=== PATIENT | female | born 1945 | race Caucasian/White ===

== ENCOUNTER → 2017-03-19 | Outpatient (CLI) | payer MEDICARE ==
[~2017-03-19] MED LIST: AMIT50TA3 PO; BALANCED SALT SOLN OPHT IRRIG 15 ML BTL ONE; BRIMONIDINE TARTRATE 0.15% OPHT SOLN 5 ML BTL ONE; CHOL5000 PO; CITA10TA4 PO; GABA300C5 PO; LANTUS2P SQ; LEVO50TA4 PO; LOSA50TA PO; METF1000 PO; NOVOINJ3 SQ; OMEP20TA PO; PILOCARPINE HCL 2% OPHT SOLN 15 ML BTL ONE; PLAV75TA29 PO; PRED1SUS6 LEFT EYE; PROPARACAINE HCL 0.5% OPHT SOLN 15 ML BTL ONE
== END ==
LOC: PHSDC 08:23
PROVIDERS: ATTEND Ophthalmology
DX: H40.20X0 Unspecified primary angle-closure glaucoma, stage unspecified (principal)

== ENCOUNTER 2017-07-02 16:25 | Inpatient (IN) | payer MEDICARE, MEDICAID ==
[~2017-07-02] VITALS: Ht 160 cm; Wt 60.6 kg
[~2017-07-02 16:25] MED LIST changes: -BALANCED SALT SOLN OPHT IRRIG 15 ML BTL ONE; -BRIMONIDINE TARTRATE 0.15% OPHT SOLN 5 ML BTL ONE; +COMB0.2S EACH EYE; +LEVO100T5 PO; -LEVO50TA4 PO; +MECL-62 PO; -NOVOINJ3 SQ; +NOVOLOGP2 SQ; -OMEP20TA PO; +OMEP20TA93 PO; -PILOCARPINE HCL 2% OPHT SOLN 15 ML BTL ONE; -PRED1SUS6 LEFT EYE; +PRED3.5D LEFT EYE; -PROPARACAINE HCL 0.5% OPHT SOLN 15 ML BTL ONE
[2017-07-02 16:44] VITALS: BP 181/84; PULSE 92; RESP 16; TEMP 98.1; O2SAT 99
--- NOTE | 2017-07-02 19:09 | RADRPT ---
EXAM DATE/TIME: 07/02/2017 18:30 [facility] COMPARISON: HIP RIGHT (AP & LAT), October 25, 2013, 19:47. INDICATIONS : Right hip pain post fall 1 week ago MEDICAL HISTORY : Right hip fracture SURGICAL HISTORY : ORIF right hip ENCOUNTER: Initial ACUITY: 1 week PAIN SCORE: 5/10 LOCATION: Right entire hip FINDINGS: No definite fractures, or dislocations are identified. No definite lytic or sclerotic lesion is seen . Slight osteopenia is seen. There are post surgical changes and evidence for old healed right proxi mal femoral fracture. CONCLUSION: Slight osteopenia. Kassie Lugo MD on July 02, 2017 at 19:07 Board Certified Radiologist. This report was verified electronically.
--- NOTE | 2017-07-02 19:13 | RADRPT ---
EXAM DATE/TIME: 07/02/2017 18:39 [facility] COMPARISON: CT BRAIN W/O CONTRAST, December 22, 2013, 16:05. INDICATIONS : Trauma, fall. RADIATION DOSE: 60.50 CTDIvol (mGy) MEDICAL HISTORY : Hypertension. Diabetes mellitus type 2. SURGICAL HISTORY : None. ENCOUNTER: Initial ACUITY: 1 week PAIN SCALE: 3/10 LOCATION: Right cranial TECHNIQUE: Multiple contiguous axial images were obtained of the head. Using automated exposure control and adj ustment of the mA and/or kV according to patient size, radiation dose was kept as low as reasonably a chievable to obtain optimal diagnostic quality images. DICOM format image data is available electro nically for review and comparison. FINDINGS: There is no evidence for intracranial hemorrhage, mass effect, mass lesions, or edema. The visualize d bony structures appear intact. Slight degree of brain atrophy is seen. Slight periventricular whit e matter changes are seen nonspecific mostly consistent with chronic small vessel ischemic changes. Approximate subcentimeter area of diminished attenuation is present in the left latanya anteriorly not present previously may represent an area of acute lacunar infarction of uncertain age could be chron ic. CONCLUSION: Slight atrophic and small vessel ischemic changes without any evidence for acute hemorrhage or mass effect and lacunar type infarction involving the left anterior latanya not present p revdayne. Kassie Lugo MD on July 02, 2017 at 19:09 Board Certified Radiologist. This report was verified electronically.
--- NOTE | 2017-07-02 19:23 | PD ---
HPI Chief Complaint: Fall Time Seen by Provider: 18:06 Travel History International Travel<30 days: No Contact w/Intl Traveler<30days: No Traveled to known affect area: No History of Present Illness HPI This is a 72-year-old female who presents for right hip pain. She states about a week ago, she lost her balance and fell onto her right side. She had her head but did not have loss of consciousness. This was not a syncopal episode. She states that she's had mild pain in her right buttock/posterior hip. She is able to ambulate with a cane. The pain is worse with lifting her leg and movement. No focal weakness, numbness, tingling, saddle paresthesias, bowel or bladder dysfunction. Symptoms are mild in severity. Onset with trauma. Sore in nature. Alleviated by taking Aleve. She states that she has had surgery on this hip before and wanted to make sure that there were no new fractures. She denies any pain in the right knee or ankle. No low back pain. No neck pain. She has been otherwise well recently without fever, chills, cough, congestion. PFSH Past Medical History Hx Anticoagulant Therapy: Yes Arthritis: No Asthma: No Autoimmune Disease: No Anxiety: Yes Depression: Yes Heart Rhythm Problems: No Cancer: No Cardiovascular Problems: Yes (htn on meds) High Cholesterol: Yes Chest Pain: No Congestive Heart Failure: No COPD: No Cerebrovascular Accident: No Diabetes: Yes (type 2) Patient Takes Glucophage: No Diminished Hearing: No Endocrine: Yes Fibromyalgia: Yes Gastrointestinal Disorders: Yes GERD: Yes Genitourinary: No Hepatitis: No Hiatal Hernia: No Hypertension: Yes Immune Disorder: No Implanted Vascular Access Dvce: No Insomnia: Yes Kidney Stones: No Musculoskeletal: Yes (FIBROMYALGIA) Neurologic: Yes Psychiatric: Yes Reproductive: No Respiratory: No Immunizations Current: Yes Migraines: Yes (IN THE PAST LAST 2004) Renal Failure: Yes Seizures: No Sleep Apnea: No Thyroid Disease: Yes (THYROIDECTOMY ) Triglycerides - High: Yes Ulcer: Yes Influenza Vaccination: No ?: Not Past Surgical History Abdominal Surgery: Yes (LAP MASSIEL) AICD: No Arteriovenous Shunt: No Cardiac Surgery: Yes (STENT RIGHT HIP TO KNEE) Cholecystectomy: Yes Ear Surgery: No Endocrine Surgery: Yes (THYROIDECTOMY) Eye Surgery: No Gynecologic Surgery: Yes (HYSTERECTOMY) Hysterectomy: Yes Insulin Pump: No Joint Replacement: No Oral Surgery: No Pacemaker: No Other Surgery: Yes (THYROIDECTOMY, right hip surgery) Social History Alcohol Use: No Tobacco Use: No Substance Use: No Allergies-Medications (Allergen,Severity, Reaction): Coded Allergies: Opioids - Morphine Analogues (Verified Allergy, Severe, Itching, 07/02/17) Opioids-Meperidine and Related (Verified Allergy, Severe, Itching, 07/02/17 ) Opioids-Methadone and Related (Verified Allergy, Severe, Itching, 07/02/17) acetaminophen (Verified Allergy, Severe, 07/02/17) codeine (Verified Allergy, Severe, RASH, 07/02/17) hydrocodone (Verified Allergy, Severe, 07/02/17) Sulfa (Sulfonamide Antibiotics) (Verified Adverse Reaction, Severe, UPSET STOMACH, 07/02/17) doxycycline (Verified Adverse Reaction, Severe, VOMITING, 07/02/17) Reported Meds & Prescriptions Reported Meds & Active Scripts Active Levothyroxine (Levothyroxine Sodium) 100 Mcg Tab 100 Mcg PO DAILY Gabapentin 300 Mg Cap 300 Mg PO TID Meclizine (Meclizine HCl) 25 Mg Tab 25 Mg PO DIRECTED PRN Combigan Opth Drops (Brimonidine-Timolol Opth Drops) 0.2-0.5% Soln 1 Drop EACH EYE BID Omeprazole 20 Mg Tab 20 Mg PO DAILY Losartan (Losartan Potassium) 50 Mg Tab 50 Mg PO DAILY Plavix (Clopidogrel Bisulfate) 75 Mg Tab 75 Mg PO DAILY Citalopram (Citalopram Hydrobromide) 10 Mg Tab 10 Mg PO DAILY Amitriptyline (Amitriptyline HCl) 50 Mg Tab 50 Mg PO HS Vitamin D3 (Cholecalciferol) 5,000 Unit Cap 5,000 Units PO DAILY Metformin (Metformin HCl) 1,000 Mg Tab 1,000 Mg PO BIDPC With meals Lantus Inj (Insulin Glargine) 1,000 Unit/10 Ml Vial 10 Units SQ HS Reported Prednisolone 1%-Nepafenac 0.1% (Prednisolone Acetate/Nepafenac) 1 %-0.1 % Drops.susp 1 Drop LEFT EYE QID Novolog Inj (Insulin Aspart) 1,000 Unit/10 Ml Vial 15 Units SQ DAILY Review of Systems Except as stated in HPI: all other systems reviewed are Neg Physical Exam Narrative GENERAL: Alert, well nourished, well appearing patient resting on the bed in no acute distress. Vital Signs reviewed SKIN: Focused skin assessment warm/dry. HEAD: Atraumatic. Normocephalic. EYES: Pupils equal and round. No scleral icterus. No injection or drainage. ENT: No nasal bleeding or discharge. Mucous membranes pink and moist. NECK: Trachea midline. No JVD. Spontaneous, painless full range of motion with no meningismus CARDIOVASCULAR: Regular rate and rhythm. No murmur appreciated. Extremities warm and well perfused with bounding peripheral pulses RESPIRATORY: No accessory muscle use. Clear to auscultation. Breath sounds equal bilaterally. Breathing easily and speaking in full sentences GASTROINTESTINAL: Abdomen soft, non-tender, nondistended. Normal bowel sounds. No rigid, rebound, guarding MUSCULOSKELETAL: No obvious deformities. No clubbing. No cyanosis. No edema. Compartments are soft. Right lower extremity: Compartments are soft and entire right lower extremity. Bounding right DP pulse. Painless full range of motion of right ankle and knee. Patient does have full range of motion of right hip though complains of mild pain with extreme flexion and external rotation. No bruising noted. Sensation intact throughout entire right lower extremity. No tenderness to palpation along entire spine. NEUROLOGICAL: Awake and alert. No obvious cranial nerve deficits. Motor grossly within normal limits. Normal speech. Sensation intact. Ambulates with cane Data Data Last Documented VS Vital Signs Date Time Temp Pulse Resp B/P (MAP) Pulse Ox O2 Delivery O2 Flow Rate FiO2 07/02/17 16:44 98.1 92 16 181/84 (116) [address] Brain W/O Iv Contrast(Rout) (07/02/17 18:21) Hip, Uni(Ap&Lat) W Ap Pelvis (07/02/17 18:21) Ct Pelvis W/O Iv Contrast (07/02/17 ) MDM Medical Decision Making Medical Screen Exam Complete: Yes Emergency Medical Condition: Yes Medical Record Reviewed: Yes Interpretation(s) Last 24 hours Impressions Hip and Pelvis X-Ray 07/02/171820 Signed Impressions: Service Date/Time: Sunday, July 02, 2017 18:30 - CONCLUSION: Slight osteopenia. KPrabha Lugo MD Head CT 07/02/171820 Signed Impressions: Service Date/Time: Sunday, July 02, 2017 18:39 - CONCLUSION: Slight atrophic and small vessel ischemic changes without any evidence for acute hemorrhage or mass effect and lacunar type infarction involving the left anterior latanya not present previously. Kassie Lugo MD Differential Diagnosis Fracture, contusion, sprain, occult fracture, intracranial hemorrhage/subdural hematoma Narrative Course X-ray of the right hip and pelvis was performed as well as CT of the brain. Patient has no new focal neurological deficits and I do not feel the latanya abnormality is acute. CT of the pelvis without contrast was ordered to evaluate for occult fracture. Patient has been signed out to Dr. Everett at 7: 20 PM. Further evaluation, care and disposition decisions will be per Dr. Everett. Tiffanie Weber MD Jul 02, 2017 19:23
--- NOTE | 2017-07-02 19:42 | PD ---
Physical Exam Date Seen by Provider: Jul 02, 2017 Time Seen by Provider: 19:39 Narrative Accepted in transfer of care from Dr. Weber Data Data Last Documented VS Vital Signs Date Time Temp Pulse Resp B/P (MAP) Pulse Ox O2 Delivery O2 Flow Rate FiO2 07/02/17 16:44 98.1 92 16 181/84 (116) [address] Brain W/O Iv Contrast(Rout) (07/02/17 18:21) Hip, Uni(Ap&Lat) W Ap Pelvis (07/02/17 18:21) Ct Pelvis W/O Iv Contrast (07/02/17 ) MDM Medical Record Reviewed: Yes Supervised Visit with MARLON: No Interpretation(s) CT pelvis w/o contrast: CONCLUSION: 1. No evidence for acute fracture. 2. Left ovarian cystic mass most likely benign, repeat ultrasound of the pelvis is suggested in 6 months as a conservative follow up. 3. Prominent soft tissue density in the region of the anus and clinical correlation is suggested. Kassie Lugo MD on July 02, 2017 at 19:47 Board Certified Radiologist. This report was verified electronically. Differential Diagnosis Accepted in transfer of care from Dr. Weber, please refer to her dictation Narrative Course Accepted in transfer of care from Dr. Weber; for follow up of CT hip and disposition, patient is aware she is waiting for CT hip results. Patient informed of imaging results showing no evidence of acute pelvis or hip fracture previous old fracture noted; mass in the rectum and 2.4 ovarian cyst noted with recommendation for follow-up in 6 months, patient reports she was told of this in the past and at time of follow up no change. Rectal exam: Normal sphincter tone no palpable mass few small external hemorrhoids no gross blood stool is Hemoccult negative HemaPrompt Test Point of Care Internal Pos. & Neg. Controls: Passed Fecal Specimen Occult Blood: Negative Mary Everett MD Jul 02, 2017 19:42
--- NOTE | 2017-07-02 19:54 | RADRPT ---
EXAM DATE/TIME: 07/02/2017 19:28 [facility] COMPARISON: No previous studies available for comparison. INDICATIONS : Trauma, fall. ORAL CONTRAST: No oral contrast ingested. RADIATION DOSE: 24.23 CTDIvol (mGy) MEDICAL HISTORY : None SURGICAL HISTORY : Right hip replacement. ENCOUNTER: Initial ACUITY: 1 week PAIN SCALE: 7/10 LOCATION: Right hip TECHNIQUE: Volumetric scanning of the pelvis was performed. Using automated exposure control and adjustment of the mA and/or kV according to patient size, radiation dose was kept as low as reasonably achievable t o obtain optimal diagnostic quality images. DICOM format image data is available electronically for review and comparison. FINDINGS: There are postsurgical changes involving the right proximal femur and evidence for old healed right p roximal femoral fracture. There are multiple tiny bone islands within the iliac bones and bilateral p roximal femur. Bony structure is osteopenic. There is slight sclerosis in the midportion of the lower sacrum may be due to old healed fracture. Acute fracture is not seen. Chronic vascular calcification s are present involving the aorta, iliac arteries without any significant stenosis or aneurysmal dila tations for technique. There is moderate amount of stool throughout the colon. There is soft tissue p rominence in the region of the anus and clinical correlation is suggested to exclude a mass. Approxi mate 2.4 cm cystic mass is present in the left ovary most likely benign, however nonspecific. CONCLUSION: 1. No evidence for acute fracture. 2. Left ovarian cystic mass most likely benign, repeat ultrasound of the pelvis is suggested in 6 mon ths as a conservative follow up. 3. Prominent soft tissue density in the region of the anus and clinical correlation is suggested. Kassie Lugo MD on July 02, 2017 at 19:47 Board Certified Radiologist. This report was verified electronically.
[2017-07-02 20:33] VITALS: BP 169/82; PULSE 87; RESP 16; O2SAT 99
[2017-07-02 21:08] LABS: AUTOMATED NEUTROPHIL # 5.1 TH/MM3 (1.8-7.7); BASOPHIL # 0.1 TH/MM3 (0-0.2); BASOPHIL % 0.7 % (0.0-2.0); EOSINOPHIL # 0.3 TH/MM3 (0-0.4); EOSINOPHIL % 3.1 % (0.0-4.0); HEMATOCRIT 38.5 % (35.0-46.0); HEMOGLOBIN 12.6 GM/DL (11.6-15.3); LYMPH % 31.8 % (9.0-44.0); LYMPHOCYTE # 2.8 TH/MM3 (1.0-4.8); MEAN CELL VOLUME 84.8 FL (80.0-100.0); MEAN CORPUSCULAR HEMOGLOBIN 27.8 PG (27.0-34.0); MEAN CORPUSCULAR HGB CONC 32.8 % (32.0-36.0); MEAN PLATELET VOLUME 9.5 FL (7.0-11.0); MONOCYTE # 0.4 TH/MM3 (0-0.9); NEUT % 59.4 % (16.0-70.0); PLATELET COUNT 287 TH/MM3 (150-450); RED BLOOD COUNT 4.54 MIL/MM3 (4.00-5.30); WHITE BLOOD COUNT 8.7 TH/MM3 (4.0-11.0)
[2017-07-02 21:21] LABS: BICARBONATE 25.8 MEQ/L (21.0-32.0); CALCIUM 8.7 MG/DL (8.5-10.1)
[2017-07-02 21:24] LABS: PROTHROMBIN TIME - PATIENT 10.4 SEC (9.8-11.6)
[2017-07-02] MEDS ORDERED: SODIUM CHLORIDE 0.9% FLUSH 10 ML FLUSH IV FLUSH PRN (21:30)
[2017-07-02] MEDS ORDERED: NALOXONE HCL 0.4 MG/ML AMP IV PUSH PRN (21:30)
[2017-07-02] MEDS ORDERED: METF1000 PO (22:06)
[2017-07-02] MEDS ORDERED: NOVONP2 (22:08)
[2017-07-02 23:20] VITALS: BP 158/72; PULSE 78; RESP 16; O2SAT 99
[2017-07-03] VITALS (9 sets, daily range): BP systolic 127–183; BP diastolic 66–97; PULSE 75–102; RESP 16–24; TEMP 97–98.5; O2SAT 92–99
[2017-07-03 01:24] LABS: BILIRUBIN, URINE NEG (NEG); BLOOD, URINE NEG (NEG); GLUCOSE,URINE 500 mg/dL (NEG); KETONE, URINE NEG (NEG); NITRITE,URINE NEG (NEG); PH, URINE 6.5 (5.0-8.5); URINE LEUKOCYTE ESTERASE NEG (NEG)
[2017-07-03 01:30] LABS: URINE COLOR YELLOW (YELLW/STRAW)
[2017-07-03 01:31] LABS: BACTERIA, URINE MOD /hpf; RBC, URINE 0-2 /hpf (0-3)
[2017-07-03 05:52] LABS: BASOPHIL # 0.1 TH/MM3 (0-0.2); BASOPHIL % 0.8 % (0.0-2.0); EOSINOPHIL # 0.3 TH/MM3 (0-0.4); EOSINOPHIL % 2.7 % (0.0-4.0); HEMATOCRIT 37.3 % (35.0-46.0); HEMOGLOBIN 12.5 GM/DL (11.6-15.3); LYMPH % 36.7 % (9.0-44.0); LYMPHOCYTE # 3.5 TH/MM3 (1.0-4.8); MEAN CELL VOLUME 85.1 FL (80.0-100.0); MEAN CORPUSCULAR HEMOGLOBIN 28.4 PG (27.0-34.0); MEAN CORPUSCULAR HGB CONC 33.4 % (32.0-36.0); MEAN PLATELET VOLUME 9.7 FL (7.0-11.0); MONO % 6.5 % (0.0-8.0); MONOCYTE # 0.6 TH/MM3 (0-0.9); NEUT % 53.3 % (16.0-70.0); PLATELET COUNT 261 TH/MM3 (150-450); RED BLOOD COUNT 4.39 MIL/MM3 (4.00-5.30); RED CELL DISTRIBUTION WIDTH 12.8 % (11.6-17.2); WHITE BLOOD COUNT 9.5 TH/MM3 (4.0-11.0)
[2017-07-03 06:04] LABS: BICARBONATE 25.2 MEQ/L (21.0-32.0); CALCIUM 8.6 MG/DL (8.5-10.1)
[2017-07-03 06:08] LABS: CREATININE 0.93 MG/DL (0.50-1.00)
[2017-07-03] MEDS ORDERED: GLUCAGON 1 MG/ML VIAL OTHER PRN (06:45)
[2017-07-03] MEDS ORDERED: DEXTROSE 50% IN WATER 50 ML VIAL(D50) IV PUSH PRN (06:45)
[2017-07-03] MEDS: INSULIN ASPART SUPPLEMENTAL SCALE SQ SCH ×4 (08:00→21:27)
[2017-07-03] MEDS: SODIUM CHLORIDE 0.9% FLUSH 10 ML FLUSH IV FLUSH SCH ×2 (09:02→21:24)
--- NOTE | 2017-07-03 11:59 | RADRPT ---
EXAM DATE/TIME: 07/03/2017 11:01 [facility] COMPARISON: No previous studies available for comparison. INDICATIONS : Dizziness. Frequent falls. Trauma. MEDICAL HISTORY : Hypertension. Diabetes mellitus type 2. SURGICAL HISTORY : Hysterectomy. Right hip, right shoulder and stent in leg. ENCOUNTER: Initial ACUITY: 2 day PAIN SCORE: 0/10 LOCATION: Head. TECHNIQUE: Multiplanar, multisequence MRI of the brain was performed without contrast. FINDINGS: There is a tiny focus of restricted diffusion involving the anterior left paramedian latanya near the po ntomedullary junction. There is mild associated T2 prolongation. The PSV consistent with a subacute i schemic insult. Elsewhere, there is patchy punctate T2 prolongation in subcortical white matter and s imilar change in occasional portions of the upper brainstem which is likely microvascular ischemic in etiology. There is no evidence of intracranial hemorrhage or mass. The ventricles are symmetric and mildly prominent. The extracranial structures are grossly benign and intact. CONCLUSION: Small subacute infarct in the left paramedian latanya Venancio Michel MD on July 03, 2017 at 11:54 Board Certified Radiologist. This report was verified electronically.
--- NOTE | 2017-07-03 12:01 | RADRPT ---
EXAM DATE/TIME: 07/03/2017 11:01 [facility] COMPARISON: No previous studies available for comparison. INDICATIONS : Dizziness. Frequent falls and trauma. MEDICAL HISTORY : Hypertension. Diabetes mellitus type 2. SURGICAL HISTORY : Hysterectomy. Right hip, left shoulder and right leg stent. ENCOUNTER: Initial ACUITY: 1 day PAIN SCORE: 0/10 LOCATION: Head. Please note a normal MRA of the brain does not entirely exclude the possibility of a small aneurysm, nor the possibility of distal intracranial vessel disease. TECHNIQUE: 3D time of flight MRA was performed. Source images, multiplanar STS MIP, and 3D volume MIP reconstru ctions were reviewed. FINDINGS: Anterior circulation: Distal intracranial internal carotid arteries are patent with flow extending to the middle and anteri or cerebral arteries. There is no evidence for aneurysm, vessel truncation or stenosis, and no eviden ce for vascular malformation. Posterior circulation: Symmetric distal vertebral arteries with flow extending to basilar artery. There is no evidence for aneurysm, vessel truncation or stenosis, and no evidence for vascular malformation. CONCLUSION: 1. Unremarkable MRA examination of the pilot point of [place]. No large vessel occlusion or significant naina w limiting stenosis. Rey Rouse MD on July 03, 2017 at 11:53 Board Certified Radiologist. This report was verified electronically.
[2017-07-03] MEDS: ASPIRIN 81 MG CHEW TAB PO SCH (13:03)
[2017-07-03 14:13] LABS: ALBUMIN 3.5 GM/DL (3.4-5.0)
[2017-07-03 14:15] LABS: DIRECT BILIRUBIN ADULT LESS THAN 0.1 MG/DL (0.0-0.2)
[2017-07-03 14:16] LABS: ALT (GPT) 57 U/L (10-53); AST (GOT) 46 U/L (15-37)
[2017-07-03 14:17] LABS: INDIRECT BILIRUBIN 0.2 MG/DL (0.0-0.8); TOTAL BILIRUBIN ADULT 0.3 MG/DL (0.2-1.0); TOTAL PROTEIN 7.8 GM/DL (6.4-8.2)
[2017-07-03 14:19] LABS: ALKALINE PHOSPHATASE 99 U/L (45-117)
--- NOTE | 2017-07-03 14:55 | HHI.HP ---
[facility] Ai Anthony MD Admission Diagnosis dizziness, possible cva Diagnoses: (1) Fall at home Diagnosis: Principal (2) Cerebrovascular accident Diagnosis: Principal Chief Complaint: Right hip pain Travel History International Travel<30 Days: No Contact w/Intl Traveler <30 Da: No Traveled to Known Affected Are: No History of Present Illness Written by Rojelio Bowles, acting as scribe for Dr. Torres on 07/03/17 at 14: 42. This is a 72-year-old female with known history of cardiac arrest, hypertension, diabetes, hyperlipidemia, peripheral vascular disease, chronic tremors, cephalgia, osteoarthritis who presented to hospital because of right hip pain. Patient states that she fell approximately 1-1/2 weeks ago at her home where she landed on her right side. She did hit the right side of her head without any loss of consciousness. Patient was tolerating the pain of her hip but it progressively got worse where the difficulty ambulating so she came to emergency department for evaluation. Patient had workup done emergency department with CT scan of the hip, which was performed and didn't indicate any acute fracture. CT of the brain was performed which showed slight atrophic and small vessel ischemic changes without any evidence of acute hemorrhage or mass and lacunar-type infarct patient involving the anterior latanya was not present. Is recommended by the ER physician that the patient be admitted for MRI evaluation to rule out CVA. MRI was performed which did show a small subacute infarct patient in the left paramedial latanya. Patient denies any unilateral weakness, sensation change area she does have chronic upper extremity weakness with tremors. Chronic cephalgia. Denies any difficulty in speaking or swallowing food. Results were discussed with the patient and daughter at bedside. Review of Systems Musculoskeletal: COMPLAINS OF: Joint pain (right hip pain) Except as stated in HPI: all other systems reviewed are Neg Past Family Social History Past Medical History Hypertension Hyperlipidemia History of cardiac arrest Peripheral artery disease Diabetes History of peptic ulcer disease History of respiratory failure and cardiac arrest History of depression Past Surgical History Left shoulder ORIF Right hip ORIF Hysterectomy Right nephrectomy Cholecystectomy Thyroidectomy Stenting in the right lower extremity SFA Reported Medications Reported Meds & Active Scripts Active Levothyroxine (Levothyroxine Sodium) 100 Mcg Tab 100 Mcg PO DAILY Gabapentin 300 Mg Cap 300 Mg PO TID Meclizine (Meclizine HCl) 25 Mg Tab 25 Mg PO DIRECTED PRN Combigan Opth Drops (Brimonidine-Timolol Opth Drops) 0.2-0.5% Soln 1 Drop EACH EYE BID Omeprazole 20 Mg Tab 20 Mg PO DAILY Losartan (Losartan Potassium) 50 Mg Tab 50 Mg PO DAILY Plavix (Clopidogrel Bisulfate) 75 Mg Tab 75 Mg PO DAILY Citalopram (Citalopram Hydrobromide) 10 Mg Tab 10 Mg PO DAILY Amitriptyline (Amitriptyline HCl) 50 Mg Tab 50 Mg PO HS Vitamin D3 (Cholecalciferol) 5,000 Unit Cap 5,000 Units PO DAILY Reported Novolin N Inj (Insulin Human NPH) 100 Unit/Ml Inj Metformin (Metformin HCl) 1,000 Mg Tab 1,000 Mg PO DAILY With a meal Prednisolone 1%-Nepafenac 0.1% (Prednisolone Acetate/Nepafenac) 1 %-0.1 % Drops.susp 1 Drop LEFT EYE QID Allergies: Coded Allergies: Opioids - Morphine Analogues (Verified Allergy, Severe, Itching, 07/02/17) Opioids-Meperidine and Related (Verified Allergy, Severe, Itching, 07/02/17 ) Opioids-Methadone and Related (Verified Allergy, Severe, Itching, 07/02/17) acetaminophen (Verified Allergy, Severe, 07/02/17) codeine (Verified Allergy, Severe, RASH, 07/02/17) hydrocodone (Verified Allergy, Severe, 07/02/17) Sulfa (Sulfonamide Antibiotics) (Verified Adverse Reaction, Severe, UPSET STOMACH, 07/02/17) doxycycline (Verified Adverse Reaction, Severe, VOMITING, 07/02/17) Family History Patient is adopted but she does indicate her cousin which is a blood relative has heart disease and coronary artery disease Social History Patient quit smoking probably 12 years ago, she denies any alcohol or illicit drugs Physical Exam Vital Signs Vital Signs Date Time Temp Pulse Resp B/P (MAP) Pulse Ox O2 Delivery O2 Flow Rate FiO2 07/03/17 12:00 97.9 99 16 146/94 (111) 96 07/03/17 08:00 98.5 99 16 183/86 (118) 98 07/03/17 07:38 07/03/17 07:14 Room Air 07/03/17 07:14 86 16 159/97 (117) 97 Room Air 07/03/17 06:44 78 16 181/89 (119) 99 Room Air 07/03/17 03:30 88 16 99 Room Air 07/02/17 23:20 78 16 158/72 (100) 99 Room Air 07/02/17 20:33 87 16 169/82 (111) 99 Room Air 07/02/17 16:44 98.1 92 16 181/84 (116) 99 Physical Exam GENERAL: Well-developed, well-nourished, in no acute distress. alert and orientated HEENT: Head is normocephalic without any lesions or masses noted. Facial features are symmetric. Eyes: Pupils equal round reactive to light. Extraocular muscles are intact. Conjunctivae were clear. Oropharyngeal: Pharynx without any erythema edema. Tongue is midline without deviation. Buccal mucosa is moist without any masses or lesions NECK: Supple without any masses. Trachea midline no deviation. No JVD, no bruits are appreciated CARDIAC: Regular rhythm, regular rate. S1/S2 are heard. No murmurs gallops or rubs. LUNGS: Clear to auscultation bilaterally. No wheeze, rhonchi or rales. No use of accessory muscles on inspiration or expiration. ABDOMEN: Soft, nontender. Nondistended. Bowel sounds heard in all 4 quadrants. No organomegaly or masses. Negative rebound, negative guarding EXTREMITIES: No edema, pulses are equal bilaterally. No cyanosis or clubbing NEUROLOGY: Mood and affect appear appropriate. Cranial nerves II through XII grossly intact. Muscle strength 5/5 in upper extremities bilaterally. Patient does have 4/5 muscle strength in the right lower extremity as compared to the left at 5/5. Deep tendon reflexes are 2+ in upper and lower extremities bilaterally. Laboratory Laboratory Tests Test 07/02/17 20:50 07/03/17 01:15 07/03/17 05:30 White Blood Count 8.7 9.5 Red Blood Count 4.54 4.39 Hemoglobin 12.6 12.5 Hematocrit 38.5 37.3 Mean Corpuscular Volume 84.8 85.1 Mean Corpuscular Hemoglobin 27.8 28.4 Mean Corpuscular Hemoglobin Concent 32.8 33.4 Red Cell Distribution Width 13.0 12.8 Platelet Count 287 261 Mean Platelet Volume 9.5 9.7 Neutrophils (%) (Auto) 59.4 53.3 Lymphocytes (%) (Auto) 31.8 36.7 Monocytes (%) (Auto) 5.0 6.5 Eosinophils (%) (Auto) 3.1 2.7 Basophils (%) (Auto) 0.7 0.8 Neutrophils # (Auto) 5.1 5.0 Lymphocytes # (Auto) 2.8 3.5 Monocytes # (Auto) 0.4 0.6 Eosinophils # (Auto) 0.3 0.3 Basophils # (Auto) 0.1 0.1 CBC Comment DIFF FINAL DIFF FINAL Differential Comment Prothrombin Time 10.4 Prothromb Time International Ratio 1.0 Activated Partial Thromboplast Time 26.3 Blood Urea Nitrogen 20 18 Creatinine 1.00 0.93 Random Glucose 252 233 Calcium Level 8.7 8.6 Sodium Level 133 134 Potassium Level 4.8 4.5 Chloride Level 100 101 Carbon Dioxide Level 25.8 25.2 Anion Gap 7 8 Estimat Glomerular Filtration Rate 55 59 Urine Color YELLOW Urine Turbidity CLEAR Urine pH 6.5 Urine Specific Hoffman 1.012 Urine Protein NEG Urine Glucose (UA) 500 Urine Ketones NEG Urine Occult Blood NEG Urine Nitrite NEG Urine Bilirubin NEG Urine Leukocyte Esterase NEG Urine RBC 0-2 Urine WBC 3-5 Urine Squamous Epithelial Cells 6-8 Urine Bacteria MOD Microscopic Urinalysis Comment CULTURE INDICATED Erythrocyte Sedimentation Rate 24 Total Bilirubin 0.3 Direct Bilirubin LESS THAN 0.1 Indirect Bilirubin 0.2 Aspartate Amino Transf (AST/SGOT) 46 Alanine Aminotransferase (ALT/SGPT) 57 Alkaline Phosphatase 99 Total Protein 7.8 Albumin 3.5 Thyroid Stimulating Hormone 3rd Gen 3.360 Date/Time Source Procedure Growth Status 07/03/17 01:15 Urine Clean Catch Urine Culture Pending Received Result Diagram: 07/03/17 0530 07/03/17 0530 Imaging Last Impressions Head Magnetic Resonance Angiography 07/03/17 0000 Signed Impressions: Service Date/Time: June 11:01 - CONCLUSION: 1. Unremarkable MRA examination of the [place]. No large vessel occlusion or significant flow limiting stenosis. Rey Rouse MD Brain MRI 07/03/17 0000 Signed Impressions: Service Date/Time: June 11:01 - CONCLUSION: Small subacute infarct in the left paramedian latanya Venancio Michel MD Hip and Pelvis X-Ray [id number]/02/[id number] Signed Impressions: Service Date/Time: Sunday, July 02, 2017 18:30 - CONCLUSION: Slight osteopenia. Kassie Lugo MD Head CT [id number]/[id number] Signed Impressions: Service Date/Time: Sunday, July 02, 2017 18:39 - CONCLUSION: Slight atrophic and small vessel ischemic changes without any evidence for acute hemorrhage or mass effect and lacunar type infarction involving the left anterior latanya not present previously. Kassie Lugo MD Pelvis CT 07/02/17 0000 Signed Impressions: Service Date/Time: Sunday, July 02, 2017 19:28 - CONCLUSION: 1. No evidence for acute fracture. 2. Left ovarian cystic mass most likely benign, repeat ultrasound of the pelvis is suggested in 6 months as a conservative follow up. 3. Prominent soft tissue density in the region of the anus and clinical correlation is suggested. Kassie Lugo MD Caprini VTE Risk Assessment Caprini VTE Risk Assessment: Mod/High Risk (score >= 2) Caprini Risk Assessment Model Point Value = 1 Point Value = 2 Point Value = 3 Point Value = 5 Age 41-60 Minor surgery BMI > 25 kg/m2 Swollen legs Varicose veins or History of unexplained or recurrent spontaneous Oral contraceptives or hormone replacement Sepsis (< 1 month) Serious lung disease, including pneumonia (< 1 month) Abnormal pulmonary function Acute myocardial infarction Congestive heart failure (< 1 month) History of inflammatory bowel disease Medical patient at bed rest Age 61-74 Arthroscopic surgery Major open surgery (> 45 min) Laparoscopic surgery (> 45 min) Malignancy Confined to bed (> 72 hours) Immobilizing plaster cast Central venous access Age >= 75 History of VTE Family history of VTE Factor V Leiden Prothrombin [id number] Lupus anticoagulant Anticardiolipin antibodies Elevated serum homocysteine Heparin-induced thrombocytopenia Other congenital or acquired thrombophilia Stroke (< 1 month) Elective arthroplasty Hip, pelvis, or leg fracture Acute spinal cord injury (< 1 month) Prophylaxis Regimen Total Risk Factor Score Risk Level Prophylaxis Regimen 0-1 Low Early ambulation 2 Moderate Order ONE of the following: *Sequential Compression Device (SCD) *Heparin 5000 units SQ BID 3-4 Higher Order ONE of the following medications: *Heparin 5000 units SQ TID *Enoxaparin/Lovenox 40 mg SQ daily (WT < 150 kg, CrCl > 30 mL/min) *Enoxaparin/Lovenox 30 mg SQ daily (WT < 150 kg, CrCl > 10-29 mL/min) *Enoxaparin/Lovenox 30 mg SQ BID (WT < 150 kg, CrCl > 30 mL/min) AND/OR *Sequential Compression Device (SCD) 5 or more Highest Order ONE of the following medications: *Heparin 5000 units SQ TID (Preferred with Epidurals) *Enoxaparin/Lovenox 40 mg SQ daily (WT < 150 kg, CrCl > 30 mL/min) *Enoxaparin/Lovenox 30 mg SQ daily (WT < 150 kg, CrCl > 10-29 mL/min) *Enoxaparin/Lovenox 30 mg SQ BID (WT < 150 kg, CrCl > 30 mL/min) AND *Sequential Compression Device (SCD) Assessment and Plan Assessment and Plan Small subacute infarct patient in the left paramedian latanya Patient presented with fall 1-1/2 weeks ago, this could be done which she had the CVA CT scan did not initially identified the bifurcation MRI did indicate the left paramedian latanya infarct patient MRA is unremarkable Pursue full neurological workup to arrive at an etiology to include carotid ultrasound, echocardiogram, laboratory studies with hemoglobin A1c, lipid panel , B12, folate, TSH, sedimentation rate Consult neurology, case management We'll get PT/OT/ST evaluations Will add aspirin to her home medication Plavix Start statin Hypertension, hyperlipidemia Obtaining lipid panel Resume home medications Diabetes Accu-Cheks with sliding scale insulin DVT prevention Sequential compression devices Physician Certification 2 Midnight Certification Type: Admission for Inpatient Services Order for Inpatient Services The services are ordered in accordance with Medicare regulations or non- Medicare payer requirements, as applicable. In the case of services not specified as inpatient-only, they are appropriately provided as inpatient services in accordance with the 2-midnight benchmark. Estimated LOS (days): 3 days is the estimated time the patient will need to remain in the hospital, assuming treatment plan goals are met and no additional complications. Post-Hospital Plan: Not yet determined Rojelio Bowles Jul 03, 2017 14:55 Brian Torres MD Jul 03, 2017 19:30
[2017-07-03] MEDS ORDERED: PILL SPLITTER OTHER PRN (15:00)
--- NOTE | 2017-07-03 15:03 | RADRPT ---
EXAM DATE/TIME: 07/03/2017 14:03 [facility] COMPARISON: No previous studies available for comparison. INDICATIONS : Cerebrovascular accident. MEDICAL HISTORY : Hypercholesterolemia. Osteoporosis. Diabetes mellitus type 2. Migraines. Hyperlipidemia. HTN. Ulcer. GERD. Renal failure. UTI. Fibromyalgia. Hyperthyroidism. Hay fever. Insomnia. Depression. Anxiety. An ticoagulant therapy. SURGICAL HISTORY : Thyroidectomy. Cholecystectomy. Hysterectomy. Stent right hip to knee. Right knee arthroscopy. Right femur and hip fracture. Left shoulder surgery. ENCOUNTER: Initial ACUITY: 1 day PAIN SCORE: 0/10 LOCATION: Bilateral neck PEAK SYSTOLIC VELOCITIES (cm/sec): ICA/CCA RATIO: Right: 1.0 Left: 1.0 ICA: Right: 75.8 Left: 112.4 CCA: Right: 78.6 Left: 112.9 ECA: Right: 77.4 Left: 91.4 VERTEBRAL: Right: 69.3 antegrade Left: 69.4 antegrade Elevated flow velocities and ICA/CCA ratios have been found to correlate with increased degrees of vessel stenosis, calculated as percentage of diameter relative to a normal segment of distal ICA/CCA FINDINGS: RIGHT CAROTID: No significant stenosis is visualized. The waveforms are within normal limits. LEFT CAROTID: No significant stenosis is visualized. The waveforms are within normal limits. VERTEBRAL ARTERIES: Antegrade flow is seen in both vertebral arteries. MISCELLANEOUS: None. CONCLUSION: No evidence of flow-limiting carotid stenosis. Venancio Michel MD on July 03, 2017 at 14:59 Board Certified Radiologist. This report was verified electronically.
[2017-07-03] MEDS: CITALOPRAM HYDROBROMIDE 20 MG TAB PO SCH (15:51)
[2017-07-03] MEDS: LOSARTAN 50 MG TAB PO SCH (15:51)
[2017-07-03] MEDS: LEVOTHYROXINE SODIUM 100 MCG TAB PO SCH (15:52)
[2017-07-03] MEDS: CLOPIDOGREL 75 MG TAB PO SCH (15:52)
[2017-07-03 16:03] LABS: FOLATE 15.8 NG/ML (3.1-17.5)
[2017-07-03] MEDS: GABAPENTIN 300 MG CAP PO SCH (17:10)
[2017-07-03 19:03] LABS: TROPONIN I LESS THAN 0.02 NG/ML (0.02-0.05)
--- NOTE | 2017-07-03 19:45 | MB ---
cc: LORRIEPHILIP DATE OF CONSULTATION 07/03/17 HISTORY OF PRESENT ILLNESS A 72-year-old right-handed woman with hypertension, insulin dependent diabetes, hypercholesterolemia, congestive heart failure, some thyroid problems, remote peptic ulcer disease, peripheral vascular disease and some chronic renal insufficiency who has been taking Plavix every day. In 2013, she fell, broke her right femur and hip. She fell about a week ago getting up out of bed in the morning and, since that time, she has some right hip pain and came into the hospital she tells me. She has not noticed any particular weakness in the right arm or leg nor any true vertigo or chest pain, palpitations. She came into the ER yesterday complaining of the right hip pain. She did not pass out. MEDICATIONS At home, 1. Thyroid medicine. 2. Gabapentin 300 t.i.d. 3. Meclizine 25 p.r.n., 4. Omeprazole 5. Losartan 6. Plavix 75 7. Citalopram 8. Elavil 50 at bedtime, 9. Metformin 10. Insulin 11. Vitamin D. 12. Some eye drops. REVIEW OF SYSTEMS She denied any history of [place], coronary artery bypass graft, stent, angioplasty, A. fib, Coumadin besides the stent in the right lower extremity. No history of hepatic or pulmonary disease, lupus, cancer, seizure, prior stroke. SOCIAL HISTORY She is not a smoker, not a drinker, lives by herself. FAMILY HISTORY She is adopted. PAST MEDICAL HISTORY As above. Cardiac arrest PHYSICAL EXAMINATION VITAL SIGNS: Afebrile 99, 16, 146/94 to 181/84. NECK: There are no carotid bruits. HEART: Regular rhythm. I did not detect a murmur. Pupils are equal, visual gonzalez are full. Extraocular movements intact without nystagmus. Face is symmetric with normal sensation. Tongue was midline. There is no drift. She had normal strength in upper and lower extremities bilaterally including the right upper and lower extremities. DTRs are absent throughout. Toes are downgoing bilaterally. Pinprick is diminished slightly in the distal lower extremities, a little bit more on the left than the right but intact in the proximal lower extremities and intact in the hands and face bilaterally. She is not ataxic on [id number] or toe to finger. Gait is steady with a walker. Speech is fluent. She is not aphasic. LABORATORY DATA CBC is normal. Sed rate is 24. Basic metabolic profile is essentially normal except for glucose of 233. LFTs are minimally elevated. Albumin is 3.5. TSH is normal. B12 is pending. Coags are normal. I note her GFR is 59. IMAGING STUDIES MRI of the brain shows a small acute left pontine infarct. Carotid ultrasound normal. She had an echocardiogram done in 2013 which showed normal, left atrial size was normal. IMPRESSION Small probably lacunar infarct. The MRA of the [place] I reviewed and the distal vertebral basilar system is normal. I would check an MRA of the neck just to make sure there is no proximal vertebral artery stenosis and just put her on a baby aspirin for now. We will check her LDL, although I know she is on Lipitor. She could be discharged on the baby aspirin and Plavix. Check a troponin. Overall, I thought she looked well neurologically. She could be discharged if her troponin is negative and the MRA of the neck is negative and her echo looks good. We will check an echo now. She also needs an EKG and to be on tele. I do not see where that has been done here in this hospitalization. I have asked the med team to double check the EKG. I can follow up in the office in six weeks. I will also put a Holter monitor on her. MD VY Chao/ /3:12 PM /7:09 PM
[2017-07-03] MEDS: AMITRIPTYLINE HCL 50 MG TAB PO SCH (21:23)
[2017-07-03] MEDS: ATORVASTATIN 10 MG TAB PO SCH (21:23)
[2017-07-03 21:32] LABS: CHOLESTEROL 226 MG/DL (120-200); TRIGLYCERIDES 976 MG/DL (42-150)
[2017-07-03 21:33] LABS: CHOLESTEROL/ HDL RATIO 10.31 RATIO; HDL CHOLESTEROL 21.9 MG/DL (40.0-60.0)
[2017-07-03 22:04] LABS: HEMOGLOBIN A1C 10.7 % (4.3-6.0)
[2017-07-04] VITALS: BP_SYST 147; BP_SYST 152; BP_DIAS 69; BP_DIAS 72; PULSE 96; PULSE 98; RESP 20; TEMP 98.3; TEMP 98.9; O2SAT 96
[2017-07-04 04:00] VITALS: BP 149/72; PULSE 92; RESP 20; TEMP 98; O2SAT 97
[2017-07-04] MEDS: LEVOTHYROXINE SODIUM 100 MCG TAB PO SCH (05:38)
[2017-07-04 08:00] VITALS: BP 105/65; PULSE 89; RESP 14; TEMP 96.6; O2SAT 97
--- NOTE | 2017-07-04 08:09 | HHI.PR ---
Subjective Remarks sr Objective Vital Signs Date Time Temp Pulse Resp B/P (MAP) Pulse Ox O2 Delivery O2 Flow Rate FiO2 07/04/17 04:00 98.0 92 20 149/72 (97) 97 07/04/17 00:00 98.9 96 20 147/69 (95) 96 07/03/17 21:00 99 07/03/17 20:00 98.3 98 20 152/72 (98) 96 07/03/17 16:00 97.0 102 16 139/95 (110) 98 07/03/17 15:56 102 07/03/17 12:00 97.9 99 16 146/94 (111) 96 I/O 07/03/17 07/03/17 07/03/17 07/04/17 07/04/17 07/04/17 07:00 15:00 23:00 07:00 15:00 23:00 Intake Total 1200 ml 250 ml Output Total 400 ml Balance -400 ml 1200 ml 250 ml Intake Oral 1200 ml 240 ml IV Total 10 ml Output Urine Total 400 ml # Voids 2 3 3 # Bowel Movements 0 0 Result Diagram: 07/03/17 0530 07/03/17 0530 Assessment and Plan Assessment and Plan imp acc to nurse moving all weell if mra neck ok vertebral arteries and echo looks good and holter on could dc trop neg and ledl cannot calc due to TG so high prob small vessel so plavix and asa 81 ok call me if vertebral arteries not nl Maximiliano Barfield MD Jul 04, 2017 08:09
[2017-07-04] MEDS: INSULIN ASPART SUPPLEMENTAL SCALE SQ SCH ×4 (08:59→21:14)
[2017-07-04] MEDS: SODIUM CHLORIDE 0.9% FLUSH 10 ML FLUSH IV FLUSH SCH ×2 (09:00→21:10)
[2017-07-04] MEDS: ASPIRIN 81 MG CHEW TAB PO SCH (09:06)
[2017-07-04] MEDS: GABAPENTIN 300 MG CAP PO SCH ×3 (09:06→17:31)
[2017-07-04] MEDS: CLOPIDOGREL 75 MG TAB PO SCH (09:06)
[2017-07-04] MEDS: PANTOPRAZOLE SOD 20 MG DELAYED RELEASE TAB PO SCH (09:06)
[2017-07-04] MEDS: CITALOPRAM HYDROBROMIDE 20 MG TAB PO SCH (09:07)
[2017-07-04] MEDS: LOSARTAN 50 MG TAB PO SCH (09:07)
[2017-07-04 10:28] LABS: CHOLESTEROL/ HDL RATIO 7.69 RATIO; HDL CHOLESTEROL 27.8 MG/DL (40.0-60.0)
[2017-07-04] MEDS ORDERED: WALKER WHEELS/F1 MIS (11:02)
--- NOTE | 2017-07-04 11:48 | RADRPT ---
EXAM DATE/TIME: 07/04/2017 10:24 [facility] COMPARISON: US CAROTID ARTERIES, July 03, 2017, 14:03. INDICATIONS : Dizziness. CONTRAST: 20 cc Omniscan (gadodiamide) IV MEDICAL HISTORY : Hypertension. Diabetes mellitus type 2. SURGICAL HISTORY : Hysterectomy. Orthopaedic surgeries. ENCOUNTER: Initial ACUITY: 1 day PAIN SCORE: 0/10 LOCATION: neck Percent stenosis is calculated using the diameter of the stenotic region over the diameter of the nor mal distal internal carotid artery. TECHNIQUE: Bolus infused MRA of the extracranial circulation was performed using a neurovascular coil. Post pro cessing was performed including rotating subvolume maximum intensity projections of each carotid eugenia ry, rotating full volume maximum intensity projections of both carotid arteries, sagittal and coronal sliding thin slab reformations of each carotid artery, and left oblique sliding thin slab reformatio n through the aortic arch to include the origin of the arch branch vessels. FINDINGS: AORTIC ARCH: There is a three vessel origin of the great vessels from the aorta. No evidence of ostial narrowing. RIGHT CAROTID: Focal plaque in the mid and distal common carotid arteries with resultant tandem less than 20% stenos is. The carotid bulb has a normal configuration without ulceration or narrowing. Focal eccentric plaq ue in the origin of the internal carotid artery with resultant less than 20% stenosis. The internal c arotid artery is otherwise patent to the skull base. The external carotid artery is intact. LEFT CAROTID: Eccentric plaque in the mid common carotid artery with resultant less than 30% stenosis. Plaque exten ding from the distal carotid bulb to the internal carotid origin with resultant approximately 40-45% stenosis. Internal carotid artery is otherwise patent to the skull base. The external carotid artery is intact. VERTEBRALS: The vertebral arteries have a symmetric diameter. No stenotic lesions are seen although there is shaun y tortuous origin on the left. CONCLUSION: 1. Tandem mild, less than 20%, stenosis of the right common carotid artery and focal eccentric less t reynaga 20% stenosis of the proximal right internal carotid artery. 2. Eccentric mild, less than 30%, stenosis of the mid left common carotid artery and approximately 40 -45% stenosis of the left internal carotid origin secondary to plaque extending through the distal bu lb. 3. Patent symmetrical bilateral vertebral arteries. Rey Rouse MD on July 04, 2017 at 11:39 Board Certified Radiologist. This report was verified electronically.
[2017-07-04 12:00] VITALS: BP 135/86; PULSE 90; RESP 16; TEMP 96.9; O2SAT 96
[2017-07-04] MEDS ORDERED: LIPI10TA PO (12:16)
[2017-07-04] MEDS ORDERED: ASPI81 PO (12:16)
--- NOTE | 2017-07-04 12:17 | HHI.DCPOC ---
Discharge Care Plan Diagnosis: (1) CVA (cerebral vascular accident) Goals to Promote Your Health * To prevent worsening of your condition and complications * To maintain your health at the optimal level Directions to Meet Your Goals Take your medications as prescribed Follow your dietary instruction Follow activity as directed Keep your appointments as scheduled Take your immunizations and boosters as scheduled If your symptoms worsen call your PCP, if no PCP go to Urgent Care Center or Emergency Room Smoking is Dangerous to Your Health. Avoid second hand smoke Call the 24-hour hour crisis hotline for domestic abuse at Liane Mendoza MD Jul 04, 2017 12:17
[2017-07-04] MEDS ORDERED: NOVORP2 SQ (12:23)
[2017-07-04] MEDS ORDERED: LEVEMIR SQ (12:23)
--- NOTE | 2017-07-04 12:23 | HHI.DS ---
Discharge Summary Admission Date Jul 03, 2017 at 12:33 Discharge Date: Jul 04, 2017 Admitting Diagnosis dizziness, possible cva (1) Fall at home ICD Code: W19.XXXA - Unspecified fall, initial encounter; Y92.009 - Unspecified place in unspecified non-institutional (private) residence as the place of occurrence of the external cause Diagnosis: Principal (2) Cerebrovascular accident ICD Code: I63.9 - Cerebral infarction, unspecified Diagnosis: Principal Procedures none Brief History - From Admission Written by Rojelio Bowles, acting as scribe for Dr. Torres on 07/03/17 at 14: 42. This is a 72-year-old female with known history of cardiac arrest, hypertension, diabetes, hyperlipidemia, peripheral vascular disease, chronic tremors, cephalgia, osteoarthritis who presented to hospital because of right hip pain. Patient states that she fell approximately 1-1/2 weeks ago at her home where she landed on her right side. She did hit the right side of her head without any loss of consciousness. Patient was tolerating the pain of her hip but it progressively got worse where the difficulty ambulating so she came to emergency department for evaluation. Patient had workup done emergency department with CT scan of the hip, which was performed and didn't indicate any acute fracture. CT of the brain was performed which showed slight atrophic and small vessel ischemic changes without any evidence of acute hemorrhage or mass and lacunar-type infarct patient involving the anterior latanya was not present. Is recommended by the ER physician that the patient be admitted for MRI evaluation to rule out CVA. MRI was performed which did show a small subacute infarct patient in the left paramedial latanya. Patient denies any unilateral weakness, sensation change area she does have chronic upper extremity weakness with tremors. Chronic cephalgia. Denies any difficulty in speaking or swallowing food. Results were discussed with the patient and daughter at bedside. CBC/BMP: 07/03/17 0530 07/03/17 0530 Significant Findings Laboratory Tests Test 07/02/17 20:50 07/03/17 01:15 07/03/17 05:30 2/15/18 18:35 Blood Urea Nitrogen 20 MG/DL (7-18) Random Glucose 252 MG/DL (74-106) 233 MG/DL (74-106) Sodium Level 133 MEQ/L (136-145) 134 MEQ/L (136-145) Estimat Glomerular Filtration Rate 55 ML/MIN (>89) 59 ML/MIN (>89) Urine Glucose (UA) 500 mg/dL (NEG) Urine Squamous Epithelial Cells 6-8 /hpf (0-5) Urine Bacteria MOD /hpf (NONE) Hemoglobin A1c 10.7 % (4.3-6.0) Aspartate Amino Transf (AST/SGOT) 46 U/L (15-37) Alanine Aminotransferase (ALT/SGPT) 57 U/L (10-53) Troponin I LESS THAN 0.02 NG/ML Triglycerides Level 976 MG/DL (42-150) Cholesterol Level 226 MG/DL (120-200) HDL Cholesterol 21.9 MG/DL (40.0-60.0) Test 07/04/17 05:15 Triglycerides Level 499 MG/DL (42-150) Cholesterol Level 214 MG/DL (120-200) HDL Cholesterol 27.8 MG/DL (40.0-60.0) Imaging Last Impressions Neck Magnetic Resonance Angiography 07/04/17 1518 Signed Impressions: Service Date/Time: Tuesday, July 04, 2017 10:24 - CONCLUSION: 1. Tandem mild, less than 20%%, stenosis of the right common carotid artery and focal eccentric less than 20%% stenosis of the proximal right internal carotid artery. 2. Eccentric mild, less than 30%%, stenosis of the mid left common carotid artery and approximately 40-45%% stenosis of the left internal carotid origin secondary to plaque extending through the distal bulb. 3. Patent symmetrical bilateral vertebral arteries. Rey Rouse MD Head Magnetic Resonance Angiography 07/03/17 0000 Signed Impressions: Service Date/Time: June 11:01 - CONCLUSION: 1. Unremarkable MRA examination of the [place]. No large vessel occlusion or significant flow limiting stenosis. Rey Rouse MD Carotid Artery Ultrasound 07/03/17 0000 Signed Impressions: Service Date/Time: June 14:03 - CONCLUSION: No evidence of flow-limiting carotid stenosis. Venancio Michel MD Brain MRI 07/03/17 0000 Signed Impressions: Service Date/Time: June 11:01 - CONCLUSION: Small subacute infarct in the left paramedian latanya Venancio Michel MD Hip and Pelvis X-Ray [id number]/02/[id number] Signed Impressions: Service Date/Time: Sunday, July 02, 2017 18:30 - CONCLUSION: Slight osteopenia. Kassie Lugo MD Head CT [id number] Signed Impressions: Service Date/Time: Sunday, July 02, 2017 18:39 - CONCLUSION: Slight atrophic and small vessel ischemic changes without any evidence for acute hemorrhage or mass effect and lacunar type infarction involving the left anterior latanya not present previously. Kassie Lugo MD Pelvis CT 07/02/17 0000 Signed Impressions: Service Date/Time: Sunday, July 02, 2017 19:28 - CONCLUSION: 1. No evidence for acute fracture. 2. Left ovarian cystic mass most likely benign, repeat ultrasound of the pelvis is suggested in 6 months as a conservative follow up. 3. Prominent soft tissue density in the region of the anus and clinical correlation is suggested. Kassie Lugo MD PE at Discharge GENERAL: This is a well-nourished, well-developed patient, in no apparent distress. CARDIOVASCULAR: Regular rate and rhythm without murmurs, gallops, or rubs. RESPIRATORY: Clear to auscultation. Breath sounds equal bilaterally. No wheezes , rales, or rhonchi. GASTROINTESTINAL: Abdomen soft, non-tender, nondistended. Normal active bowel sounds MUSCULOSKELETAL: Extremities without clubbing, cyanosis, or edema. NEURO: Alert & Oriented x4 to person, place, time, situation. Moves all ext x4 Pt update on day of discharge Patient seen today in follow-up for acute stroke. Doing well. Chart reviewed. Discussed with patient. Her hemoglobin A1c is 10.7. Patient will need insulin regimen that is more tailored to her needs to prevent further secondary comorbidities related to uncontrolled diabetes. Patient expressed understanding. Hospital Course Patient is a 72-year-old female who became known to have an acute stroke after weakness was evaluated in the emergency room. Patient did see the neurologist and continued to improve with physical and occupational therapy recommendations. Pressure was uncontrolled and she required quite a bit of insulin. Blood pressure improved. Pt Condition on Discharge: Fair Discharge Disposition: Rehab Inpatient Discharge Time: <= 30 minutes Discharge Instructions DIET: Follow Instructions for: Heart Healthy Diet Speech Therapy-Diet Recommends: Regular Activities you can perform: Regular-No Restrictions Follow up Referrals: Neurology - 2 Weeks with Maximiliano Barfield MD New Medications: Walker with Front Wheels (Walker with Front Wheels) 1 Mis Mis EA .XX DIRECTED, #1 0 Refills Aspirin (Tgt Aspirin) 81 Mg Chw 81 MG PO DAILY for cva, #32 CHEW Atorvastatin (Lipitor) 10 Mg Tab 10 MG PO HS for cva, #31 TAB Insulin Detemir Inj (Levemir Inj) 1,000 unit/ 10 ML Vial 15 UNITS SQ HS for Blood Sugar Management, #31 INJECTION Do not mix with any other Insulin. Insulin Human Regular Inj (Novolin R Inj) 1,000 Unit/10 Ml Vial 5 UNITS SQ TIDAC for Blood Sugar Management, #93 INJECTION Continued Medications: Amitriptyline (Amitriptyline) 50 Mg Tab 50 MG PO HS for Control Depression, #30 TAB 5 Refills Brimonidine-Timolol Opth Drops (Combigan Opth Drops) 0.2-0.5% Soln 1 DROP EACH EYE BID for Glaucoma, #1 BOTTLE 6 Refills Cholecalciferol (Vitamin D3) 5,000 Unit Cap 5000 UNITS PO DAILY for Nutritional Supplement, #30 CAP 3 Refills Citalopram (Citalopram) 10 Mg Tab 10 MG PO DAILY for Control Depression, #90 TAB 1 Refill Clopidogrel (Plavix) 75 Mg Tab 75 MG PO DAILY for Blood Clot Prevention, #90 TAB 1 Refill Gabapentin (Gabapentin) 300 Mg Cap 300 MG PO TID, #90 CAP 0 Refills Levothyroxine (Levothyroxine) 100 Mcg Tab 100 MCG PO DAILY for Thyroid, #30 TAB 0 Refills Losartan (Losartan) 50 Mg Tab 50 MG PO DAILY for Blood Pressure Management, #90 TAB 1 Refill Meclizine (Meclizine) 25 Mg Tab 25 MG PO DIRECTED PRN for VERTIGO, #30 TAB 3 Refills Metformin (Metformin) 1,000 Mg Tab 1000 MG PO DAILY for Blood Sugar Management, #30 TAB 0 Refills With a meal Omeprazole (Omeprazole) 20 Mg Tab 20 MG PO DAILY, #30 TAB 1 Refill Prednisolone Acetate/Nepafenac (Prednisolone 1%-Nepafenac 0.1%) 1 %-0.1 % Drops.susp 1 DROP LEFT EYE QID Discontinued Medications: Insulin Human NPH Inj (Novolin N Inj) 100 Unit/Ml Inj Liane Mendoza MD Jul 04, 2017 12:23
[2017-07-04] MEDS ORDERED: GADODIAMIDE PF 287 MG/ML 20 ML VIAL (for RAD MRI) IVCONTRAST ONE (13:31)
[2017-07-04 16:00] VITALS: BP 124/74; PULSE 94; RESP 16; TEMP 96.7; O2SAT 97
[2017-07-04] MEDS: INSULIN HUMAN REGULAR 1,000 UNITS/10 ML VIAL SQ SCH (17:36)
[2017-07-04 20:00] VITALS: BP 135/60; PULSE 93; RESP 20; TEMP 98.7; O2SAT 94
[2017-07-04] MEDS ORDERED: INSULIN DETEMIR 100 UNITS/ML VIAL SQ SCH (21:00)
[2017-07-04] MEDS: AMITRIPTYLINE HCL 50 MG TAB PO SCH (21:10)
[2017-07-04] MEDS: ATORVASTATIN 10 MG TAB PO SCH (21:13)
[2017-07-05] VITALS: BP 111/55; PULSE 99; RESP 20; TEMP 97.2; O2SAT 96
[2017-07-05] MEDS: LEVOTHYROXINE SODIUM 100 MCG TAB PO SCH (05:29)
[2017-07-05 08:00] VITALS: BP 110/64; PULSE 83; RESP 18; TEMP 96.9; O2SAT 96
[2017-07-05] MEDS: INSULIN ASPART SUPPLEMENTAL SCALE SQ SCH ×2 (08:51→14:02)
[2017-07-05] MEDS: INSULIN HUMAN REGULAR 1,000 UNITS/10 ML VIAL SQ SCH ×2 (08:52→13:55)
[2017-07-05] MEDS: CLOPIDOGREL 75 MG TAB PO SCH (08:55)
[2017-07-05] MEDS: PANTOPRAZOLE SOD 20 MG DELAYED RELEASE TAB PO SCH (08:55)
[2017-07-05] MEDS: ASPIRIN 81 MG CHEW TAB PO SCH (08:55)
[2017-07-05] MEDS: LOSARTAN 50 MG TAB PO SCH (08:55)
[2017-07-05] MEDS: GABAPENTIN 300 MG CAP PO SCH ×2 (08:55→13:56)
[2017-07-05] MEDS: CITALOPRAM HYDROBROMIDE 20 MG TAB PO SCH (08:56)
[2017-07-05] MEDS: SODIUM CHLORIDE 0.9% FLUSH 10 ML FLUSH IV FLUSH SCH (08:57)
--- NOTE | 2017-07-05 09:06 | ECHRPT ---
Indication: cva/tia CONCLUSIONS Normal left ventricular size. The left ventricular systolic function is hyperdynamic with an estimated ejection fraction in the ra nge of 65- 70%. Aortic sclerosis. Mitral anular calcification. Trace mitral valve regurgitation. There is mild tricuspid valve regurgitation. BP: / HR: Rhythm: MEASUREMENTS (Male / Female) Normal Values Technical Quality:Fair 2D ECHO LV Diastolic Diameter PLAX 3.6 cm 4.2 - 5.9 / 3.9 - 5.3 cm LV Systolic Diameter PLAX 2.5 cm IVS Diastolic Thickness 1.2 cm 0.6 - 1.0 / 0.6 - 0.9 cm LVPW Diastolic Thickness 1.2 cm 0.6 - 1.0 / 0.6 - 0.9 cm LV Relative Wall Thickness 0.6 RV Internal Dim ED PLAX 2.5 cm M-MODE Aortic Root Diameter MM 3.3 cm LA Systolic Diameter MM 2.9 cm LA Ao Ratio MM 0.9 AV Cusp Separation MM 1.3 cm DOPPLER Mitral E Point Velocity 57.8 cm/s Mitral A Point Velocity 103.0 cm/s Mitral E to A Ratio 0.6 LV E' Lateral Velocity 8.2 cm/s Mitral E to LV E' Lateral Ratio 7.1 LV E' Septal Velocity 4.9 cm/s Mitral E to LV E' Septal Ratio 11.9 FINDINGS LEFT VENTRICLE Normal left ventricular size. The left ventricular systolic function is hyperdynamic with an estimated ejection fraction in the ra nge of 65- 70%. RIGHT VENTRICLE Normal right ventricular size and systolic function. LEFT ATRIUM The left atrial size is normal. RIGHT ATRIUM The right atrial size is normal. ATRIAL SEPTUM Normal atrial septal thickness without atrial level shunting by limited color doppler interrogation. AORTA The aortic root and proximal ascending aorta are normal in size on limited imaging. MITRAL VALVE Trace mitral valve regurgitation. AORTIC VALVE Trileaflet aortic valve. No aortic valve stenosis or regurgitation. TRICUSPID VALVE Structurally normal tricuspid valve. There is mild tricuspid valve regurgitation. PULMONARY VALVE The pulmonary valve is not well visualized. VESSELS The inferior vena cava is normal in size. PERICARDIUM No pericardial effusion. Silvia Moon MD, FACC (Electronically Signed) Final Date:05 July 2017 09:05
--- NOTE | 2017-07-05 11:06 | HHI.PR ---
Subjective Remarks Patient seen today in follow-up for discharge planning. Echocardiogram unremarkable. Patient's with no new complaints Objective Vitals Vital Signs Date Time Temp Pulse Resp B/P (MAP) Pulse Ox O2 Delivery O2 Flow Rate FiO2 07/05/17 08:00 96.9 83 18 110/64 (79) 96 07/05/17 00:00 97.2 99 20 111/55 (73) 96 07/04/17 20:00 98.7 93 20 135/60 (85) 94 07/04/17 16:00 96.7 94 16 124/74 (91) 97 07/04/17 12:00 96.9 90 16 135/86 (102) 96 I/O 07/04/17 07/04/17 07/04/17 07/05/17 07/05/17 07/05/17 07:00 15:00 23:00 07:00 15:00 23:00 Intake Total 250 ml 440 ml 242 ml Balance 250 ml 440 ml 242 ml Intake Oral 240 ml 440 ml 240 ml IV Total 10 ml 2 ml # Voids 3 3 6 # Bowel Movements 0 0 Result Diagram: 07/03/17 0530 07/03/17 0530 Objective Remarks GENERAL: This is a well-nourished, well-developed patient, in no apparent distress. CARDIOVASCULAR: Regular rate and rhythm without murmurs, gallops, or rubs. RESPIRATORY: Clear to auscultation. Breath sounds equal bilaterally. No wheezes , rales, or rhonchi. GASTROINTESTINAL: Abdomen soft, non-tender, nondistended. Normal active bowel sounds MUSCULOSKELETAL: Extremities without clubbing, cyanosis, or edema. NEURO: Alert & Oriented x4 to person, place, time, situation. Moves all ext x4 Procedures none A/P Problem List: (1) Fall at home ICD Code: W19.XXXA - Unspecified fall, initial encounter; Y92.009 - Unspecified place in unspecified non-institutional (private) residence as the place of occurrence of the external cause Plan: Doing better. No new issues (2) Cerebrovascular accident ICD Code: I63.9 - Cerebral infarction, unspecified Plan: Continue with medical management Discharge Planning Discharged to inpatient rehabilitation when bed available Liane Mendoza MD Jul 05, 2017 11:06
[2017-07-05 12:00] VITALS: BP 149/78; PULSE 90; RESP 18; TEMP 96.8; O2SAT 97
--- NOTE | 2017-07-05 13:10 | HHI.FF ---
Face to Face Verification Diagnosis: (1) CVA (cerebral vascular accident) Physical Therapy Order: Evaluate and Treat, Improve ambulation Occupational Therapy Order: Evaluate and Treat, Improve ADL, Gross motor coordination Home Health Nursing Order: Medical education I have seen patient Julio Littlejohn on 07/05/17. My clinical findings support the need for the requested home health care services because: Ltd mobility - disease progression High risk of falls I certify that my clinical findings support that this patient is homebound because: Impaired cognitive ability/safety Unsteady gait/balance Liane Mendoza MD Jul 05, 2017 13:10
[2017-07-05 16:00] VITALS: BP 121/79; PULSE 92; RESP 18; TEMP 98.4; O2SAT 97
--- NOTE | 2017-07-06 16:33 | HM ---
Date Performed: 07/04/2017 Time Performed: 19:29:00 HOOKUP DATE: 07/04/17 07:29:00 PM Fri ANALYSIS START TIME: 07/04/2017 7:34:00 PM ANALYSIS END TIME: 07/05/2017 4:56:32 PM PATIENT AGE: 72 PATIENT HEIGHT: 63 PATIENT WEIGHT: 132 DRUG LIST: ROOM [id number] PATIENT DIAGNOSIS: POSSIBLE CVA TEST NARRATIVE: The patient's average heart rate was 91 BPM. Heart rates greater than 120 B PM were noted 1% of the time. No episodes of bradycardia were noted. No pauses exceeding 2.0 sec onds were noted. 4 ventricular ectopics, which represented < 1% of the total beat count, were not ed. The highest ventricular ectopic frequency occurred from 09:00 PM to 10:00 PM Fri. During this t [place] 1 VE(s) occurred. Ventricular ectopics were observed as 4 isolated beat(s) only. No couplets or runs were noted. 3 supraventricular ectopics, which represented < 1% of the total beat count, we re noted. The highest supraventricular ectopic frequency occurred from 07:00 AM to 08:00 AM Sat. Du ring this time 1 SVE(s) occurred. No episodes of ST depression (defined as -1.0 mm or more) were noted in channel 1. No episodes of ST depression (defined as -1.0 mm or more) were noted in channel 2. No episodes of ST depression (defined as -1.0 mm or more) were noted in channel 3. TEST INTERPRETATION: 24 hour holter monitor- Dr. Chao Bailey Patient monitored 21 hours and 23 minutes. The patient appears to be in an A-sensed, V-paced rhythm at an average rate of 91 bpm shaun [place]ton sinus tachycardia with atrioventricular conduction delay. I cannot clearly determine if they are actually pacer spikes. Clinical correlation recommended. Minimum heart rate of 77 bpm, maximum heart rate of 128 bpm. It appears to be sinus tachycardia at 128 bpm. 4 wide-complex PVCs, and 3 PACs. Signed by : Chao Bailey
== END 2017-07-05 17:43 | disposition home health service (06) | DRG 65 ==
LOC: PHED 16:25 → PHEDA 21:51 → PHEDH 07-03 06:14 → PH3A 07-03 07:37 → OBSVTOIN 07-03 12:33
PROVIDERS: ADMIT Hospitalist; ATTEND Hospitalist
DX: I63.9 Cerebral infarction, unspecified (principal); I13.0 Hypertensive heart and chronic kidney disease with heart failure and stage 1 through stage 4 chronic kidney disease, or unspecified chronic kidney disease; I50.9 Heart failure, unspecified; E11.51 Type 2 diabetes mellitus with diabetic peripheral angiopathy without gangrene; E11.22 Type 2 diabetes mellitus with diabetic chronic kidney disease; N18.9 Chronic kidney disease, unspecified; E78.5 Hyperlipidemia, unspecified; Z79.4 Long term (current) use of insulin; Z79.84 Long term (current) use of oral hypoglycemic drugs; M19.90 Unspecified osteoarthritis, unspecified site; M25.551 Pain in right hip; W19.XXXA Unspecified fall, initial encounter; Y92.009 Unspecified place in unspecified non-institutional (private) residence as the place of occurrence of the external cause; Z87.891 Personal history of nicotine dependence
CPT/HCPCS: 70450; 70544; 70548; 70551; 72192; 73502; 80048; 80061; 80076; 81001; 82550; 82607; 82746; 82948; 83036; 84443; 84484; 85025; 85610; 85652; 85730; 87086; 93225; 93226; 93306; 93880; A9579; G0378; J1815